=== PATIENT | female | born 1970 | race American Indian/Alaskan Native ===

== ENCOUNTER 2021-07-15 04:13 | Emergency (ER) | payer OTHER ==
--- NOTE | 2021-07-15 05:43 | XRay Report ---
CHEST 2 VIEWS INDICATION / CLINICAL INFORMATION: COUGH. COMPARISON: None available. FINDINGS: SUPPORT DEVICES: None. HEART / MEDIASTINUM: No significant abnormality. LUNGS / PLEURA: No significant pulmonary or pleural abnormality. No pneumothorax. ADDITIONAL FINDINGS: No significant additional findings. IMPRESSION: 1. No acute findings. Signer Name: Tyrell Templeton MD Signed: 07/15/2021 5:38 AM Workstation Name: [id number]
[2021-07-15] MEDS ORDERED: DEXAMETHASONE 4 MG TAB PO ONE (06:29)
[2021-07-15] MEDS ORDERED: ACETAMINOPHEN W/CODEINE 300-30 MG TAB PO ONE (06:29)
[2021-07-15] MEDS ORDERED: BENZONATATE 100 MG CAP PO ONE (06:30)
--- NOTE | 2021-07-15 07:27 | Emergency Department Report ---
ED ENT HPI - General Chief complaint: Upper Respiratory Infection Stated complaint: COUGH/CHEST PAIN Time Seen by Provider: 07/15/21 06:17 Source: patient Mode of arrival: Ambulatory Limitations: No Limitations - History of Present Illness Initial comments: 50-year-old black female with no past medical history presents to the emergency department for evaluation of 6-day history of worsening headache, cough, and fever. She states that she had her [employer] Covid booster shot on 330 and she felt like symptoms started after that. She states that she is coughs so much that she now has some shortness of breath and pain in her chest only when he coughs. She states that she has been taking Tylenol Sinus several times daily without improvement. She denies any sick contacts. MD complaint: sore throat -: Gradual, days(s) (6) Location: throat Quality: aching Consistency: constant Worsens with: swallowing Associated Symptoms: fever, cough, pain with swallowing, sore throat, rhi norrhea. denies: gum swelling, toothache, tinnitus, hearing loss, discharge from ear - Related Data Previous Rx's Medication Instructions Recorded Last Taken Type Amoxicillin/K Clav Tab [Augmentin 1 tab PO Q12HR #14 tab 07/15/21 Unknown Rx 875 mg] Brompheniramine/Pseudoephed/Dm 10 ml PO TID PRN #120 ml 07/15/21 Unknown Rx [Bromfed Dm Cough Syrup] methylPREDNISolone [Medrol 4MG 4 mg PO DAILY #1 pack 07/15/21 Unknown Rx DOSEPAK (21 tabs)] Allergies Allergy/AdvReac Type Severity Reaction Status Date / Time No Known Allergies Allergy Unverified 07/15/21 04:58 ED Dental HPI - General Chief complaint: Upper Respiratory Infection Stated complaint: COUGH/CHEST PAIN Time Seen by Provider: 07/15/21 06:17 Source: patient Mode of arrival: Ambulatory Limitations: No Limitations - Related Data Previous Rx's Medication Instructions Recorded Last Taken Type Amoxicillin/K Clav Tab [Augmentin 1 tab PO Q12HR #14 tab 07/15/21 Unknown Rx 875 mg] Brompheniramine/Pseudoephed/Dm 10 ml PO TID PRN #120 ml 07/15/21 Unknown Rx [Bromfed Dm Cough Syrup] methylPREDNISolone [Medrol 4MG 4 mg PO DAILY #1 pack 07/15/21 Unknown Rx DOSEPAK (21 tabs)] Allergies Allergy/AdvReac Type Severity Reaction Status Date / Time No Known Allergies Allergy Unverified 07/15/21 04:58 ED Review of Systems ROS: Stated complaint: COUGH/CHEST PAIN Other details as noted in HPI Constitutional: fever. denies: chills Eyes: eye pain. denies: eye discharge, vision change ENT: ear pain, throat pain, congestion. denies: dental pain, hearing loss, epistaxis Respiratory: cough, shortness of breath. denies: SOB with exertion, SOB at rest Cardiovascular: chest pain, palpitations. denies: dyspnea on exertion, edema, paroxysmal nocturnal dyspnea Gastrointestinal: denies: abdominal pain, nausea, vomiting, hematemesis, melena, hematochezia Genitourinary: denies: urgency, dysuria, frequency, hematuria Musculoskeletal: denies: back pain Skin: denies: rash, lesions Neurological: headache. denies: weakness, numbness, paresthesias, confusion, abnormal gait, vertigo ED Past Medical Hx - Medications Home Medications: Home Medications Medication Instructions Recorded Confirmed Last Taken Type Amoxicillin/K Clav Tab [Augmentin 1 tab PO Q12HR #14 tab 07/15/21 Unknown Rx 875 mg] Brompheniramine/Pseudoephed/Dm 10 ml PO TID PRN #120 ml 07/15/21 Unknown Rx [Bromfed Dm Cough Syrup] methylPREDNISolone [Medrol 4MG 4 mg PO DAILY #1 pack 07/15/21 Unknown Rx DOSEPAK (21 tabs)] ED Physical Exam - General Limitations: No Limitations General appearance: alert, in no apparent distress - Head Head exam: Present: atraumatic, normocephalic - Eye Eye exam: Present: normal appearance. Absent: conjunctival injection - ENT ENT exam: Absent: normal exam (Bilateral nasal mucosal edema and turbinate swelling. Tenderness to bilateral maxillary and frontal sinus areas.), normal orophraynx (Erythema to posterior oropharynx) - Expanded ENT Exam Expanded Throat exam: Negative: tonsillar erythema, tonsillomegaly, tonsillar exudate, R peritonsillar mass, L peritonsillar mass - Neck Neck exam: Present: normal inspection, lymphadenopathy. Absent: tenderness - Respiratory Respiratory exam: Present: normal lung sounds bilaterally, chest wall tenderness. Absent: respiratory distress, wheezes, rales, rhonchi, stridor, accessory muscle use - Cardiovascular Cardiovascular Exam: Present: regular rate, normal heart sounds - GI/Abdominal GI/Abdominal exam: Present: soft, normal bowel sounds. Absent: distended, tenderness, guarding, rebound, rigid - Extremities Exam Extremities exam: Present: normal inspection, normal capillary refill. Absent: tenderness, pedal edema, joint swelling, calf tenderness - Back Exam Back exam: Present: normal inspection. Absent: CVA tenderness (R), CVA tenderness (L) - Neurological Exam Neurological exam: Present: alert, oriented X3 - Psychiatric Psychiatric exam: Present: normal affect, normal mood - Skin Skin exam: Present: warm, dry, intact, normal color ED Course Vital Signs 07/15/21 07/15/21 04:20 07:41 Temperature 102.0 F H 99.9 F H Pulse Rate 100 H 85 Respiratory 18 18 Rate Blood Pressure 158/87 Blood Pressure 133/70 [Right] O2 Sat by Pulse 96 100 Oximetry ED Medical Decision Making - Radiology Data Radiology results: report reviewed, image reviewed Chest x-ray: FINDINGS: SUPPORT DEVICES: None. HEART / MEDIASTINUM: No significant abnormality. LUNGS / PLEURA: No significant pulmonary or pleural abnormality. No pneumothorax. ADDITIONAL FINDINGS: No significant additional findings. IMPRESSION: 1. No acute findings. - Medical Decision Making 50-year-old black female with no past medical history presents to the emergency department for evaluation of 6-day history of worsening headache, cough, and fever. She states that she had her [employer] Covid booster shot on 330 and she felt like symptoms started after that. She states that she is coughs so much that she now has some shortness of breath and pain in her chest only when he coughs. She states that she has been taking Tylenol Sinus several times daily without improvement. She denies any sick contacts. Chest x-ray without any acute abnormalities noted. Exam consistent with sinusitis, and patient has been taking sinus medication for past several days without improvement. She will be treated for acute bacterial rhinosinusitis with 7-day course of Augmentin along with steroid pack and cough medication. She is advised to take medications as prescribed and follow-up with primary care provider if no improvement or worsening symptoms. She verbalized understanding of and agreement with plan of care. Critical care attestation.: If time is entered above; I have spent that time in minutes in the direct care of this critically ill patient, excluding procedure time. ED Disposition Clinical Impression: URI with cough and congestion, Acute bacterial rhinosinusitis Disposition: HOME / SELF CARE / HOMELESS Is pt being admited?: No Does the pt Need Aspirin: No Condition: Stable Instructions: Cough, Adult, [id number], Antibiotic Medicine, Adult, [id number], Viral Respiratory Infection, [id number], Sinusitis, Adult, [id number] Additional Instructions: Take medications as prescribed. Drink plenty of p.o. fluids. Follow-up with primary care provider if no improvement or worsening symptoms. Return to the emergency department as needed. Prescriptions: Amoxicillin/K Clav Tab [Augmentin 875 mg] 1 tab PO Q12HR #14 tab Brompheniramine/Pseudoephed/Dm [Bromfed Dm Cough Syrup] 10 ml PO TID PRN #120 ml PRN Reason: Cough methylPREDNISolone [Medrol 4MG DOSEPAK (21 tabs)] 4 mg PO DAILY #1 pack Referrals: WAYNE SALMERON MD [Referring] - 3-5 Days Time of Disposition: 07:28
[2021-07-15 07:42] VITALS: BP 133/70
== END 2021-07-15 07:42 | disposition home or self-care (01) ==
LOC: ED 04:13
DX: J06.9 Acute upper respiratory infection, unspecified (principal); J01.90 Acute sinusitis, unspecified; B96.89 Other specified bacterial agents as the cause of diseases classified elsewhere
CPT/HCPCS: 71046; 99283; J8540